=== PATIENT | male | born 1995 ===

== ENCOUNTER 2025-07-24 16:23 | Emergency (ER) | payer SELFPAY ==
[~2025-07-24] VITALS: Ht 167.6 cm; Wt 68.0 kg
--- NOTE | 2025-07-24 16:50 | NUR ---
Assumed care at this time.
[2025-07-24 17:22] LABS: RAPID GROUP A STREP negative (NEGATIVE)
[2025-07-24 17:25] LABS: SARS-CoV-2, RNA, NAAT NEGATIVE SARS CoV-2 (NEGATIVE)
[2025-07-24 17:32] LABS: INFLUENZA TYPE A Negative For Type A (NEGATIVE); INFLUENZA TYPE B Negative For Type B (NEGATIVE)
[2025-07-24 17:50] VITALS: BP 118/74; PULSE 64; RESP 18; TEMP 97.1; O2SAT 100
[2025-07-24] MEDS: 0.9%NACL 1000ML 1,000 ML IV SCH (17:53)
[2025-07-24 18:38] LABS: IMMATURE GRANULOCYTE ABSOLUTE 0.04 K/uL (0-1); NUCLEATED RED BLOOD CELLS 0.0 % (0.0-0.19); PLATELET COUNT (AUTO) 224 K/uL (130-400); RED BLOOD CELL COUNT(AUTO) 4.81 MIL/uL (4.50-6.20); RED CELL DISTRIBUTION WIDTH 12.1 % (11.0-15.5); WHITE BLOOD COUNT (AUTO) 10.3 K/uL (4.8-10.8)
--- NOTE | 2025-07-24 18:40 | NUR ---
Report was given to MIRIAM Das by Cherelle Lambert lvn.
[2025-07-24 18:44] LABS: CREATININE 0.7 mg/dL (0.5-1.3); GLOMERULAR FILTR. RATE CALC 128.0 mL/min (>90); GLUCOSE,RANDOM 117.0 mg/dL (70-105); SODIUM SERUM 140.0 mmol/L (136-145); UREA NITROGEN, BLOOD 5.0 mg/dL (7-18)
[2025-07-24 18:48] LABS: APPEARANCE,URINE CLOUDY (CLEAR); GLUCOSE, URINE (UA) NEGATIVE (NEGATIVE); LEUKOCYTE ESTERASE ,URINE NEGATIVE Leu/uL (NEGATIVE); NITRATE,URINE NEGATIVE (NEGATIVE); OCCULT BLOOD,URINE NEGATIVE (NEGATIVE)
[2025-07-24 18:49] LABS: ADD UA MICROSCOPIC YES
[2025-07-24 18:50] LABS: CREATINE KINASE, TOTAL 84.0 U/L (21-232)
[2025-07-24 18:55] LABS: AMPHET/METH SCREEN,URINE NEGATIVE (NEGATIVE); BARBITURATE SCREEN, URINE NEGATIVE (NEGATIVE); CANNABINOID SCREEN,URINE NEGATIVE (NEGATIVE); COCAINE SCREEN,URINE NEGATIVE (NEGATIVE)
[2025-07-24 19:17] LABS: SQUAMOUS EPITHELIAL CELL,UR Rare /HPF (0-2)
--- NOTE | 2025-07-24 19:22 | ERN ---
ED Note History of Present Illness Stated Complaint: BODYACHES, NAUSEA Chief Complaint: Generalized Body Aches Time Seen by MD: 16:27 Time Seen by Midlevel: 16:30 Dictation: 29-year-old male coming in with complaints of generalized body weakness and he adache for one week. Denies having any fevers, nausea or vomiting diarrhea, cough or congestion. Denies chest pain or chest discomfort. Allergies: Coded Allergies: No Known Allergies (Unverified Allergy, Unknown, 07/24/25) Past Medical History Past Medical History: Depression Surgical History: None Review of System Dictation Constitutional: Generalized fatigue Eyes: Negative for injury, pain,redness, and discharge ENT: Negative for injury,pain or swelling Cardiovascular: Negative for chest pain, palpitations, and edema Respiratory: Negative for shortness of breath, cough, and wheezing, Abdomen/GI: Negative for abdominal pain, nausea, vomiting, diarrhea, and constipation Back: Negative for injury and pain : Negative for injury, bleeding and discharge MS/Extremity: Negative for injury and deformity Skin: Negative for rash, and discoloration Neuro: Positive for headache without weakness numbness tingling or seizure Psych: Negative for suicide ideation, homicidal ideation, and hallucinations Review of Systems: was completed Initial Vital Sign VS Vital Signs Date Time Temp Pulse Resp B/P (MAP) Pulse Ox O2 Delivery O2 Flow Rate FiO2 07/24/25 16:25 97.9 68 16 141/95 99 Room Air 0 07/24/25 16:50 21 Physical Exam Dictation General: awake, alert, NAD Head/Face: Normocephalic, atraumatic Eyes: PERRL, EOMI, vision at baseline ENT: oral cavity clear, TMs clear, no signs of infection Neck: Trachea midline, supple, no nuchal rigidity Cardiovascular: RRR, normal S1/S2, No MRGs, no JVD Respiratory: CTAB, no respiratory distress, No rales or wheezes Abdomen: Soft, non-tender, non-distended, normal bowel sounds, no guarding or rebound. Skin: Warm, dry, normal turgor, no rash MS/Extremity: Pulses equal, no cyanosis, neurovascular intact, FROM Neuro: COAx4, GCS 15, strength 5/5, CN 2-12 intact, normal cerebellar exam, normal gait, Psych: Normal behavior, mood, and affect normal Results (Laboratory/Radiology) Laboratory/Radiology Laboratory Tests Test 12/1/25 16:55 07/24/25 18:29 07/24/25 18:38 Influenza Type A Antigen Negative For Type A Influenza Type B Antigen Negative For Type B SARS-CoV-2, RNA, NAAT NEGATIVE SARS CoV-2 Group A Streptococcus Rapid negative (NEGATIVE) White Blood Count 10.3 K/uL (4.8-10.8) Red Blood Count 4.81 MIL/uL (4.50-6.20) Hemoglobin 14.5 g/dL (14.0-18.0) Hematocrit 42.7 % (42-54) Mean Corpuscular Volume 88.8 fL (79-99) Mean Corpuscular Hemoglobin 30.1 pg (27.0-33.0) Mean Corpuscular Hemoglobin Concent 34.0 g/dL (32.0-36.0) Red Cell Distribution Width 12.1 % (11.0-15.5) Platelet Count 224 K/uL (130-400) Mean Platelet Volume 9.6 fL (7.5-10.5) Immature Granulocyte % (Auto) 0.4 % (0-1) Neutrophils (%) (Auto) 79.9 % (40.0-77.0) H Lymphocytes (%) (Auto) 14.0 % (21.0-51.0) L Monocytes (%) (Auto) 4.8 % (3.0-13.0) Eosinophils (%) (Auto) 0.6 % (0.0-8.0) Basophils (%) (Auto) 0.3 % (0.0-5.0) Neutrophils # (Auto) 8.2 K/uL (1.8-7.7) H Lymphocytes # (Auto) 1.4 K/uL (1.0-4.8) Monocytes # (Auto) 0.5 K/uL (0.1-1.0) Eosinophils # (Auto) 0.06 K/uL (0.00-0.70) Basophils # (Auto) 0.03 K/uL (0.00-0.20) Absolute Immature Granulocyte (auto 0.04 K/uL (0-1) Nucleated Red Blood Cells 0.0 % (0.0-0.19) Sodium Level 140 mmol/L (136-145) Potassium Level 3.9 mmol/L (3.5-5.1) Chloride Level 103 mmol/L (101-111) Carbon Dioxide Level 31 mmol/L (21-32) Blood Urea Nitrogen 5 mg/dL (7-18) L Creatinine 0.7 mg/dL (0.5-1.3) Glomerular Filtration Rate Calc 128 mL/min (>90) Random Glucose 117 mg/dL (70-105) H Total Calcium 8.0 mg/dL (8.5-10.1) L Total Creatine Kinase 84 U/L (21-232) Urine Color YELLOW (YELLOW) Urine Appearance CLOUDY (CLEAR) H Urine pH 8.0 (5.0-8.0) Urine Specific [place] 1.021 (1.001-1.031) Urine Protein 50 mg/dL (NEGATIVE) H Urine Glucose (UA) NEGATIVE mg/dL (NEGATIVE) Urine Ketones NEGATIVE mg/dL (NEGATIVE) Urine Occult Blood NEGATIVE (NEGATIVE) Urine Nitrate NEGATIVE (NEGATIVE) Urine Bilirubin NEGATIVE mg/dL (NEGATIVE) Urine Urobilinogen 2.0 mg/dL (0.2-1.0) H Urine Leukocyte Esterase NEGATIVE Agnes/uL Urine Opiates Screen NEGATIVE (NEGATIVE) Urine Barbiturates Screen NEGATIVE (NEGATIVE) Urine Phencyclidine Screen NEGATIVE (NEGATIVE) Urine Amphetamines Screen NEGATIVE (NEGATIVE) Urine Benzodiazepines Screen NEGATIVE (NEGATIVE) Urine Cocaine Screen NEGATIVE (NEGATIVE) Urine Marijuana (THC) Screen NEGATIVE (NEGATIVE) Labs Reviewed?: Yes ED Course ED Course Orders Procedure Category Date Status Time Covid Rna Naat LAB 07/24/25 Complete 16:30 Influenza Type A & B, LAB 07/24/25 Complete Rapid 16:30 Rapid (Group A Strep) LAB 07/24/25 Complete 16:30 0.9%Nacl 1000ml (Ns PHA 07/24/25 Complete 1000ml) 16:30 Ondansetron 4mg Inj PHA 07/24/25 In Process (Zofran 4mg Inj) 16:30 Acetaminophen 325 Tab PHA 07/24/25 In Process (Tylenol 325mg Tab 16:30 Ketorolac PHA 07/24/25 In Process Tromethamine 15mg/Ml 16:30 Cbc With Differential LAB 07/24/25 Complete 18:22 Basic Metabolic Panel LAB 07/24/25 Complete 18:22 Urinalysis Profile LAB 07/24/25 In Process 18:22 Drug Screen Urine LAB 07/24/25 In Process 18:22 Creatine Kinase, Total LAB 07/24/25 Complete 18:22 Current Medications Medications (Trade) Dose Ordered Sig/Ruperto Route PRN Reason Start Time Stop Time Status Last Admin Dose Admin Acetaminophen (TYLenol 325MG TAB) 650 mg ONCE PO 07/24/25 16:30 07/24/25 20:30 07/24/25 17:52 Ketorolac Tromethamine (toRADol) 15 mg ONCE IV 07/24/25 16:30 07/24/25 20:30 07/24/25 17:52 Ondansetron HCl (zoFRAN 4MG INJ) 4 mg ONCE IVP 07/24/25 16:30 07/24/25 20:30 07/24/25 17:52 Sodium Chloride 1,000 ml @ 1,000 mls/hr Q1H IV 07/24/25 16:30 07/24/25 19:09 DC 07/24/25 17:53 Vital Signs Date Time Temp Pulse Resp B/P (MAP) Pulse Ox O2 Delivery O2 Flow Rate FiO2 07/24/25 17:50 97.2 64 18 118/74 100 Room Air* 0 21 07/24/25 16:50 96.3 64 18 115/76 99 Room Air* 0 21 07/24/25 16:25 97.9 68 16 141/95 99 Room Air 0 Medical Decision Making MDM MDM: 29-year-old male presents with generalized weakness and intermittent headache x1 week. Symptoms are nonfocal, gradual onset and not sudden or thunderclap. No history of trauma, falls, or anticoagulant use or known intracranial pathology. Denies fever, neck stiffness, photophobia, visual changes, confusion, paresthesias, focal weakness, speech difficulty, gait dist urbances, seizure activity or syncope. On physical exam patient is afebrile, hemodynamically stable, nontoxic appearing, Neuro exam intact, no focal deficits. Sensation intact, normal coordination, normal gait, no pronator drift, no meningeal signs. CBC and CMP within normal limits, electrolytes stable. COVID, flu, strep negative. UA unremarkable, no leukocytosis, or anemia. Pathology is negative. No metabolic abnormalities. Patient reports donating plasma twice weekly which may contribute to mild volume depletion, electrolyte shifts, fatigue and headache symptoms. Symptoms improved with the fluids and supportive care and ED. given normal neurological exam no red flag headache features, no need for a CT as this time. Symptoms consistent most with dehydration or electrolyte depletion and benign headache related to broken plasma donation. Differential diagnosis: Dehydration, viral syndrome, flu, COVID the Rationale: Tests considered and ordered secondary to shared decision making include: Previous outside records reviewed: Old ER visits. Risk of complication and/or morbidity or mortality of patient management: None Medications-Per medication reconciliation Need for hospitalization: Patient does not meet criteria for hospitalization. Need for emergency major/minor surgery: No There are no social concerns with this patient. Prescription drug management Prescriptions will include symptomatic care Patient's prior external medical records from other ER visits were reviewed by me as indicated. Prior testing and results from previous visits were reviewed. Prior tests were taken into account with medical decision making and resource utilization, independent historian/historians were used to obtain complete medical history. I independently interpreted the test that were performed, results were reviewed by me and considered findings on radiology if ordered. Medical management and examination interpretation discussions were had by me with other qualified healthcare professionals as indicated for the patient's care. DX & DISP Disposition: Discharge Departure Impression: Primary Impression: Viral syndrome Additional Impression: Dehydration Condition: Stable Additional Instructions: Please maintain hydration, avoid donating plasma twice a week to help with the volume depletion. Take Tylenol or Motrin for symptomatic control. You have worsening symptoms with the next couple of days return to the hospital. Follow up with your primary care doctor. Referrals: SELF,REFERRAL (PCP) Time of Disposition: 19:18 I have reviewed the case, and I agree with, Diagnosis and Plan JONATHAN WETZEL CNP Jul 24, 2025 19:22
== END 2025-07-24 19:31 | disposition home or self-care (01) ==
LOC: EDH 16:23
DX: B34.9 Viral infection, unspecified (principal); E86.0 Dehydration; Z20.822 Contact with and (suspected) exposure to COVID-19
CPT/HCPCS: 99284; 96374; 87635; 96361; 96375; 82550; 80048; 80305; 85025; 87880; 87804 ×2; 36415; 81001; J1885; J7030; J2405